=== PATIENT | male | born 1950 | race Caucasian/White ===

== ENCOUNTER 2017-09-05 15:08 | Outpatient (CLI) | payer MEDICARE, BC ==
--- NOTE | 2017-09-05 18:17 | MRI ---
CERVICAL SPINE MRI WITHOUT CONTRAST: Date: 09/05/17 HISTORY: Cervical radiculopathy. COMPARISON: None. TECHNIQUE: A cervical spine MRI is performed without contrast administration. Multisequential, multiplanar imag ing is performed. FINDINGS: There is appropriate T1 marrow signal intensity of the cervical vertebra. Cervical spine vertebral b анна height is maintained. No fracture. No significant STIR hyperintensity to suggest vertebral body edema or ligamentous injury. Visualized brain parenchyma, cervicomedullary junction, cervical cord, and the upper thoracic cord h ave a normal size and signal intensity. C2-C3: No significant disc osteophyte complex. No significant central canal stenosis. Neural foramina are p atent. C3-C4: No significant disc osteophyte complex. No significant central canal stenosis. Degenerative changes in bilateral uncovertebral joints and bilateral facet hypertrophy result in moderate bilateral trey inal narrowing. C4-C5: Broad based disc osteophyte complex abuts the thecal sac. No high grade central canal stenosis. Dege nerative changes in bilateral uncovertebral joints and facet hypertrophy result in moderate bilatera l foraminal narrowing. C5-C6: Broad based disc osteophyte complex abuts the thecal sac. Mild central canal stenosis. Neural forami na appear to be patent. C6-C7: No high grade central canal stenosis. Neural foramina are patent. C7-T1: No high grade central canal stenosis. Neural foramina are patent. IMPRESSION: Limited evaluation due to motion degradation and multiple sequences. Degenerative changes of the cer vical spine as detailed above. POS: [facility]
== END 2017-09-05 15:09 | disposition home or self-care (01) ==
LOC: TBSIIMAG 15:08
PROVIDERS: ATTEND Neurological Surgery
DX: M47.22 Other spondylosis with radiculopathy, cervical region (principal)
CPT/HCPCS: 72141

== ENCOUNTER 2017-11-04 05:41 | Day surgery (SDC) | payer MEDICARE, BC ==
--- NOTE | 2017-10-30 09:30 | HP ---
HISTORY OF PRESENT ILLNESS: Mr. Shultz is back in our office after he continues to have difficulty co ntrolling his right hand and has burning and numbness in the right hand if he uses the arm too much. Sensory symptoms are in the right ulnar nerve distribution of the forearm and hand. They involve th e palm and dorsum of the 4th and 5th digits. The right hand feels weak and he cannot drum in his ban d as he wishes to. He recently had a NCS with Dr. Gifty Hi that showed ulnar neuropathy at the elb ow of the right upper extremity. He also had an MRI of his right upper extremity at [facility]. Mr. Shultz had a right ulnar transposition on 11/27/2016 at [facility]. The pain and numbnes s never fully has been relieved. PAST MEDICAL HISTORY: Hypertension, high cholesterol, diabetes mellitus. ALLERGIES: BAND-AIDS. REVIEW OF SYSTEMS: Ten-point review of systems completed is otherwise negative unless stated in the above HPI. PHYSICAL EXAMINATION: HEENT: Normocephalic, atraumatic. Hearing intact. Moist mucous membranes. NECK: Normal range of motion. Trachea is midline. RESPIRATORY: The patient has bilateral symmetric chest rise. Appears to have no shortness of breath . CARDIOVASCULAR: The patient has regular rate and rhythm, normal S1, S2 heart sounds. No distal cyan osis or clubbing noted. NEUROLOGIC: Cranial nerves II-XII are grossly intact. Speech is fluent. He answers my questions ap propriately. Gait and station are normal. Motor exam of the right hand has intrinsic weakness in th e intrinsic muscles, 3/5. Sensory exam; positive Tinel's along the right ulnar nerve. Most serious are the areas of the transposition anterior to the elbow joint. MRI of the cervical spine at [facility] shows no compression of C8 or T1. EMG and NCV shows median nerves improved from 2015, left ulnar nerve stable, right ulnar nerve worse. 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 PLAN: 1. Sensory loss in the hand is palmar and dorsum, not a Guyon's canal issue. 2. We plan to re-explore the ulnar nerve transposition and free the nerve again. Further proximal a nd distal if needed and see if the nerve is better behind the epicondyle. Consent was given. We discussed the indications, risks, benefits, alternatives, and expected results from surgery. The risks discussed included, but were not limited to bleeding, infection, nerve dave ge, hand weakness, complex regional pain syndrome, reflex sympathetic dystrophy, cardiopulmonary comp lications of sedation including . He understands the risk and is willing to proceed with the sanchez rgery.
[2017-11-01 15:22] VITALS: BMI 29.1
[2017-11-04] MEDS ORDERED: Sodium Chloride 0.9% 10 ML ONE (06:17)
[2017-11-04] MEDS ORDERED: CEFAZOLIN/Water 2 GM/20 ML SYRINGE ONE (06:18)
[2017-11-04 06:28] LABS: #Basophils 0.1 thou/uL (0.0-0.2); #Eosinphils 0.2 thou/uL (0.0-0.7); #Lymphocytes 2.1 thou/uL (1.20-3.40); #Monocytes 0.8 thou/uL (0.11-0.59); #Neutrophils 5.4 thou/uL (1.40-6.50); %Eosinophils 2.2 % (0.0-10.0); %Lymphocytes 24.3 % (21.0-51.0); Hematocrit 42.8 % (42.0-52.0); Mean Platelet Volume 9.1 fL (7.4-10.4); Red Blood Cell (RBC) Count 4.71 mill/uL (4.70-6.10); White Blood Cell (WBC) Count 8.5 thou/uL (4.8-10.8)
[2017-11-04] MEDS ORDERED: Bupivacaine/Epinephrine 0.25% 30 ML VIAL ONE (06:32)
[2017-11-04 06:37] LABS: PTT 27.6 SEC (22.9-36.1); Prothrombin Time 12.6 SEC (12.0-14.7)
[2017-11-04] MEDS ORDERED: Fentanyl 100 MCG/2 ML VIAL ONE (06:41)
[2017-11-04 06:42] LABS: Anion Gap 11 mmol/L (10-20); BUN (Urea Nitrogen) 16 mg/dL (8.4-25.7); Calc. Creatinine Clearance 90 mL/min (70-130); Calcium 8.7 mg/dL (7.8-10.44); Carbon Dioxide 25 mmol/L (23-31); Chloride 103 mmol/L (98-107); Estimated GFR-MDRD 86
[2017-11-04] MEDS ORDERED: Insulin Regular 300 UNITS/3 ML VIAL ONE (06:42)
--- NOTE | 2017-11-04 11:17 | OP ---
DATE OF PROCEDURE: 11/04/2017 SURGEON: Ajit Hadley M.D. SURVEY COMPILER: Louis Gaston PA-C. PREOPERATIVE INDICATION: Prevent further neurological deterioration. PREOPERATIVE DIAGNOSES: Prior ulnar transposition, recurrent ulnar neuropathy with worsening neurolo gical deficit. POSTOPERATIVE DIAGNOSES: Prior ulnar transposition, recurrent ulnar neuropathy with worsening neurol ogical deficit. OPERATIVE PROCEDURE: Reopening of the incision at the right elbow, external neurolysis ulnar nerve, submuscular transposition of the ulnar nerve. PREOPERATIVE MEDICATION: Ancef 2 grams IV. DRAIN NUMBER: Zero. DRAIN TYPE: None. OPERATIVE DICTATION: The patient was brought to the operating room. General LMA anesthesia was mary mariluz. The patient's arm was extended on an arm board attachment for the operating table. The entire arm was sterilely prepped and draped. We planned to reopen the previous incision and extended proxim ally and distally. Under our planned incision, we infused local anesthetic. We opened our incision with a 15 blade knife and controlled bleeding with bipolar cautery. We used sharp dissection with th e needle point cautery dissecting hemostats and bipolar cautery until we had freed up the scar tissue and identified the ulnar nerve in the subcutaneous compartment over the ventral aspect of the elbow. We dissected circumferentially around the nerve and continued our dissection proximally and distall y. There were 2 areas of severe fibrosis of the nerve. The first was at the intermuscular septum of the arm and the second was where the nerve dove into the flexure carpi ulnaris distally. We used ca reful external neurolysis to free the ulnar nerve from these 2 sites of entrapment. We continued our dissection of the ulnar nerve proximally for another 5 cm that we had done before and distally we sp lit the heads of the flexor carpi ulnaris. We dissected circumferentially around multiple branches o f the nerve until there was a significant amount of loose nerve. We tried to reposition the nerve in the cubital tunnel, resection of the elbow made it transpose itself to the ventral surface of the el bow and we thought leaving it in its original position was not going to offer significant improvement . We had already done 1 subcutaneous transposition, so we elected to do submuscular transposition at this time. We took a larger wedge of the intermuscular septum of the arm to allow smoother transpos ition. We used the lengthening Z incision of the flexor pronator tendinous complex at the medial epi condyle and dissected all the way down beneath the muscle. In the submuscular position, flexion and extension of the elbow does not produce any stretch or impingement of the ulnar nerve whatsoever. We irrigated copiously with bacitracin irrigation. We reattached the flexor pronator tendon to the rem nant on the medial epicondyle with some lengthening due to our Z incision. This was done with horizo ntal mattress sutures. The last check of the nerve with a Hortense 4 dissector was placed in the sub muscular compartment along with the nerve and we flexed and extended and still found no significant c ompression of the nerve. We irrigated copiously with bacitracin irrigation once again. We closed th e incision in anatomic layers and we applied a sterile dressing. The patient was placed in a wrist s plint to avoid significant wrist flexion and pronation and we had an elbow sling for comfort. The pa tient was taken to the recovery room in good neurological condition.
[2017-11-04] MEDS ORDERED: Labetalol HCl 100 MG/20 ML VIAL ONE (17:19)
[2017-11-04] MEDS ORDERED: Glycopyrrolate 0.2 MG/ML 5 ML SYRINGE ONE (17:19)
[2017-11-04] MEDS ORDERED: Propofol 200 MG/20 ML VIAL ONE (17:19)
[2017-11-04] MEDS ORDERED: Lidocaine 1% PF 5 ML VIAL ONE (17:19)
[2017-11-04] MEDS ORDERED: ePHEDrine/0.9% NaCl/PF SYRINGE 50 mg/10 ml ONE (17:19)
[2017-11-04] MEDS ORDERED: Calcium Chloride 1 GM/10 ML Abboject SYRINGE ONE (17:19)
[2017-11-04] MEDS ORDERED: Ondansetron HCl/PF 4 MG/2 ML Vial ONE (17:19)
[2017-11-04] MEDS ORDERED: Metoclopramide HCl 10 MG/2 ML VIAL ONE (17:19)
[2017-11-04] MEDS ORDERED: Ketorolac Tromethamine 30 MG/ML VIAL ONE (17:19)
== END 2017-11-04 13:14 | disposition home or self-care (01) ==
LOC: SDC 05:41
PROVIDERS: ATTEND Neurological Surgery
PROC: 01N40ZZ Release Ulnar Nerve, Open Approach (ICD-10-PCS; principal; 2017-11-04)
DX: G56.21 Lesion of ulnar nerve, right upper limb (principal); I10 Essential (primary) hypertension; E78.00 Pure hypercholesterolemia, unspecified; E11.9 Type 2 diabetes mellitus without complications; Z98.890 Other specified postprocedural states; Z90.49 Acquired absence of other specified parts of digestive tract; Z96.651 Presence of right artificial knee joint; Z88.8 Allergy status to other drugs, medicaments and biological substances; Z79.4 Long term (current) use of insulin; Z79.899 Other long term (current) drug therapy
CPT/HCPCS: 36415; 36416; 80048; 85025; 85610; 85730; A4216; J0131; J1170; J1815; J1885; J2001; J2405; J2704; J2765; J3010; J3490

== ENCOUNTER 2018-05-05 13:11 | Outpatient (CLI) | payer MEDICARE, BC ==
[2018-05-05] MEDS ORDERED: Gadobenate Dimeglumine 529 MG/1 ML (20ML VIAL) ONE (15:00)
--- NOTE | 2018-05-05 16:42 | MRI ---
MRI RIGHT BRACHIAL PLEXUS WITH AND WITHOUT CONTRAST: 05/05/2018 HISTORY: Right arm weakness for several years, progressively worsening. The patient has a history of right shoulder repair and right wrist/hand carpal tunnel repair. COMPARISON: None. TECHNIQUE: Multiplanar, multisequence MR imaging of the right brachial plexus obtained with and without contrast . FINDINGS: Coronal STIR imaging, limited by artifact and motion, demonstrates no focal area of edema in the yajaira on of the brachial plexus on either side. Degenerative changes are seen involving the right acromioc lavicular joint with joint space narrowing, osteophyte formation, and small volume fluid signal inten sity within the right AC interspace. Sagittal T1 weighted imaging through the cervical spine is limited by motion artifact and demonstrate s multilevel right-sided facet hypertrophy. There is also degenerative change at the atlantoaxial in terspace. No mass lesion or adenopathy is seen along the course of the brachial plexus on the right. Post contrast imaging demonstrates no mass lesion or abnormal enhancement along the course of the bra chial plexus on the right. The cervical spine is not fully assessed on this examination, with regard to central canal and/or madhavi ral foraminal stenosis. Imaged spinal cord demonstrates normal signal intensity. IMPRESSION: No mass lesion, edema, or abnormal enhancement is appreciated along the course of the brachial plexus on the right. Please note that this study is significantly limited on the basis of persistent patie nt motion artifact. POS: [facility]
== END 2018-05-05 13:12 | disposition home or self-care (01) ==
LOC: TBSIIMAG 13:11
PROVIDERS: ATTEND Neurological Surgery
DX: M62.541 Muscle wasting and atrophy, not elsewhere classified, right hand (principal); M62.89 Other specified disorders of muscle
CPT/HCPCS: 71552; 82565; A9579

== ENCOUNTER 2018-09-02 09:27 | Emergency (ER) | payer MEDICARE, BC, OTHER ==
[2018-09-02] MEDS ORDERED: Ibuprofen 200 MG TAB ONE (10:50)
[2018-09-02] MEDS ORDERED: Acetaminophen 325 MG TAB ONE (10:50)
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
== END 2018-09-02 12:40 | disposition home or self-care (01) ==
LOC: ERS 09:27
DX: M54.5 Low back pain (principal); E11.9 Type 2 diabetes mellitus without complications; I10 Essential (primary) hypertension; V89.2XXA Person injured in unspecified motor-vehicle accident, traffic, initial encounter
CPT/HCPCS: 70450; 72072; 72100

== ENCOUNTER 2018-09-17 10:41 | Day surgery (SDC) | payer MEDICARE, BC ==
[2018-09-17 11:54] VITALS: BMI 29.1
[2018-09-17] MEDS ORDERED: Prevnar 13-Val Conj/PF 0.5 ML SYRINGE IM ONE (12:15)
[2018-09-17 12:44] VITALS: BP 171/84; TEMP 97
--- NOTE | 2018-09-17 14:32 | RAD ---
LUMBAR MYELOGRAM: History: Spinal stenosis. Comparison: None. Exposure: 0.4 minutes, 72.1 mGy*cm^2 FINDINGS: Initial two view senior policy associate lumbar spine radiograph demonstrates bilateral transpedicular screws at L4, L5 , and S1. Possible perihardware lucency involving the right S1 screw. Disc prosthesis at L5-S1. Osteo phyte formation at L4-5, L5-S1 as well as L3-4. Vertebral body height is maintained. No fracture. IMPRESSION: Successful lumbar puncture. A total of 10 cc of Isovue M200 contrast was administered intrathecally. No immediate or post procedure complication. Technique: Consent obtained to perform a lumbar puncture for lumbar myelogram. The patient's back was evaluated. The L2-3 level was deemed appropriate. Skin was prepped and draped in sterile fashion. 1% Lidocaine, buffered with sodium bicarbonate, used for local anesthesia. Under fluoroscopic guidance, a 22 gauge spinal needle was advanced to the CSF space. Via short tubing catheter, a total of 10 cc of Isovue M 200 contrast was administered intrathecally. The patient tolerated the procedure well. No immediate o r post procedure complication. IMPRESSION: Successful lumbar puncture for lumbar myelogram. Refer to the separate CT Myelogram report for furthe r details. POS: [facility]
--- NOTE | 2018-09-17 15:35 | CT ---
CT MYELOGRAM OF LUMBAR SPINE: Date: 09/17/18 HISTORY: Spinal stenosis. COMPARISON: 07/06/15. TECHNIQUE: Post myelogram lumbar spine CT is performed in the axial plane. Reformatted images are submitted for interpretation. FINDINGS: There is interval development of left psoas muscle atrophy. Atherosclerosis of a nonaneurysmal aorta. Visualized solid organs are grossly unremarkable. No retroperitoneal mass, lymphadenopathy, or hematoma. There are nonspecific, nonenlarged periaortic and aortocaval lymph nodes. Lumbar spine vertebral body height is maintained. No fracture. The right S1 transpedicular screw has subtle perihardware lucency. The left transpedicular screw at S1 extends beyond the anterior margin. Disc prosthesis at the L5-S1 level is noted. Lumbar spine vertebral body height is maintained. There is no fracture. 3.0 mm of retrolisthesis of L4 upon L5. T12-L1: No significant central canal stenosis. Patent neural foramina bilaterally. L1-L2: No significant central canal stenosis. Patent bilateral neural foramina. L2-L3: Generalized disc bulge without any significant central canal stenosis. Neural foramina are pa tent bilaterally. L3-L4: Broad based disc bulge, ligamentum flavum thickening, and facet hypertrophy result in mild ce ntral canal stenosis. Mild right and mild to moderate left foraminal narrowing. L4-L5: There is significant loss of disc space height. Posterior laminectomy defect is identified. N o high grade central canal stenosis. Moderate right and moderate to severe left foraminal narrowing. L5-S1: Disc prosthesis. There is posterior decompression change. Bone graft material is identified. No high grade central canal stenosis. Right neural foramen is patent. Left neural foramen is mildly n arrowing. Note, there is a right facetectomy. There is some impingement and encroachment upon the lef t subarticular zone at L5-S1 secondary to an osteophyte ridge. This osteophyte ridge abuts but does n ot significantly obscure the traversing left S1 nerve root. IMPRESSION: 1. Lumbar fusion as above. There is subtle lucency involving the right S1 transpedicular screw. 2. No high grade central canal stenosis. 3. Varying degrees of foraminal stenosis as detailed above. 4. Osteophyte ridge along the left subarticular zone at L5-S1 that abuts but does not obscure the tr aversing left S1 nerve root. POS: [facility]
[2018-09-17] MEDS ORDERED: Iopamidol-M 200 41% 20 ML VIAL ONE (16:12)
== END 2018-09-17 14:20 | disposition home or self-care (01) ==
LOC: RAD 10:41
PROVIDERS: ATTEND Neurological Surgery
PROC: B01B1ZZ Fluoroscopy of Spinal Cord using Low Osmolar Contrast (ICD-10-PCS; principal; 2018-09-17)
DX: M48.061 Spinal stenosis, lumbar region without neurogenic claudication (principal); M25.78 Osteophyte, vertebrae; M51.26 Other intervertebral disc displacement, lumbar region; I70.0 Atherosclerosis of aorta; I10 Essential (primary) hypertension; E78.00 Pure hypercholesterolemia, unspecified; E11.9 Type 2 diabetes mellitus without complications; Z79.4 Long term (current) use of insulin; Z79.899 Other long term (current) drug therapy; Z91.048 Other nonmedicinal substance allergy status; Z98.1 Arthrodesis status
CPT/HCPCS: 62304; 72132

== ENCOUNTER 2019-05-20 09:48 | Outpatient (CLI) | payer MEDICARE, BC ==
--- NOTE | 2019-05-20 11:19 | MRI ---
MRI RIGHT SHOULDER WITHOUT IV CONTRAST: HISTORY: Rupture of right subscapularis tendon, right shoulder pain, and limited range of motion for many year s, getting worse. Prior biceps tendon surgery. FINDINGS: Multiplanar, multisequence MR examination of the right shoulder is performed. There is very severe m otion artifact, which considerably lowers the sensitivity of this study. Severe AC joint arthrosis c hanges are noted, with some subchondral cystic changes and hypertrophic osteophytosis, with some flui d and fat stranding in the subacromial bursa. There is some fluid density within the anterior deltoi d muscle, evidence for muscle strain. Evidence for biceps tenodesis. There is extensive abnormal si gnal associated with the subscapularis tendon and myotendinous region, evidence for a full-thickness retracted tear, particularly of the superior and mid fibers of the subscapularis tendon, with some of the most caudal fibers still appearing to be intact. 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 There is probably some as sociated glenoid hypoplasia. Abnormal signal and blunting of the superior labrum. Irregular, partia l-thickness, undersurface tear of the conjoined tendon region, but without a complete full-thickness retracted tear. IMPRESSION: 1. Evidence for a full-thickness retracted tear of the supraspinatus tendon, particularly the superi or and mid fibers. 2. Status post biceps tenodesis. 3. 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 4. Irregular blunted superior labrum. 5. No intact biceps tendon intra-articularly. 6. Very severe acromioclavicular joint arthrosis with some downsloping of the lateral acromion. 7. Minimal fluid density within the anterior deltoid muscle, evidence for associated strain. POS: [facility]
== END 2019-05-20 09:49 | disposition home or self-care (01) ==
LOC: BICMRI 09:48
PROVIDERS: ATTEND Orthopaedic Surgery
DX: S46.811A Strain of other muscles, fascia and tendons at shoulder and upper arm level, right arm, initial encounter (principal); M75.121 Complete rotator cuff tear or rupture of right shoulder, not specified as traumatic; M19.011 Primary osteoarthritis, right shoulder; Z98.890 Other specified postprocedural states

== ENCOUNTER 2019-05-29 11:28 | Outpatient (CLI) | payer MEDICARE, BC ==
[2019-05-29 12:37] LABS: #Basophils 0.1 thou/uL (0.0-0.2); #Eosinphils 0.1 thou/uL (0.0-0.7); #Lymphocytes 1.7 thou/uL (1.20-3.40); #Monocytes 0.7 thou/uL (0.11-0.59); #Neutrophils 4.1 thou/uL (1.40-6.50); %Basophils 1.1 % (0.0-1.0); %Eosinophils 2.1 % (0.0-10.0); %Lymphocytes 25.5 % (21.0-51.0); %Neutrophils 61.2 % (42.0-75.0); Hemoglobin 14.5 g/dL (14.0-18.0); Mean Corpuscular HGB CONC 34.3 g/dL (32.0-36.0); Mean Corpuscular Hemoglobin 32.5 pg (27.0-31.0); Mean Corpuscular Volume 94.8 fL (78.0-98.0); Mean Platelet Volume 9.3 fL (7.4-10.4); Platelet Count 154 thou/uL (130-400); Red Blood Cell (RBC) Count 4.46 mill/uL (4.70-6.10); White Blood Cell (WBC) Count 6.6 thou/uL (4.8-10.8)
[2019-05-29 13:01] LABS: Anion Gap 12 mmol/L (10-20); BUN (Urea Nitrogen) 14 mg/dL (8.4-25.7); Calc. Creatinine Clearance 0 mL/min (70-130); Calcium 9.4 mg/dL (7.8-10.44); Carbon Dioxide 23 mmol/L (23-31); Chloride 105 mmol/L (98-107); Estimated GFR-MDRD 85; Glucose 214 mg/dL (80-115); Potassium 4.4 mmol/L (3.5-5.1); Sodium 136 mmol/L (136-145)
== END 2019-05-29 11:29 | disposition home or self-care (01) ==
LOC: LABBT 11:28
PROVIDERS: ATTEND Orthopaedic Surgery
DX: Z01.818 Encounter for other preprocedural examination (principal); S46.811A Strain of other muscles, fascia and tendons at shoulder and upper arm level, right arm, initial encounter; M75.101 Unspecified rotator cuff tear or rupture of right shoulder, not specified as traumatic
CPT/HCPCS: 80048; 85025; 93005; 93010

== ENCOUNTER 2019-06-05 05:49 | Day surgery (SDC) | payer MEDICARE, BC ==
[2019-05-29 11:57] VITALS: BMI 30.2
[2019-06-05] MEDS ORDERED: Midazolam HCl 2 mg/2 ml Vial ONE (06:08)
[2019-06-05] MEDS ORDERED: Fentanyl 100 MCG/2 ML VIAL ONE (06:08)
[2019-06-05] MEDS ORDERED: Promethazine HCl 25 MG/ML VIAL IM PRN (06:28)
[2019-06-05] MEDS ORDERED: HYDROcodone/Acetaminophen 10/325 mg Tablet PO PRN ×2 (06:28)
[2019-06-05] MEDS ORDERED: Ropivacaine 0.2% 550 ML 550 ML NERVE BLCK SCH (06:28)
[2019-06-05] MEDS ORDERED: Zolpidem Tartrate 5 MG TAB PO PRN (06:28)
[2019-06-05] MEDS ORDERED: Ondansetron PF 4 MG/2 ML Vial IVP PRN (06:28)
[2019-06-05] MEDS ORDERED: Fentanyl 100 MCG/2 ML VIAL IV PRN (06:28)
[2019-06-05] MEDS ORDERED: traMADol HCl 50 MG TAB PO PRN ×2 (06:28)
[2019-06-05] MEDS ORDERED: Dextrose 50% Abboject 50 ML SYRINGE ONE (06:45)
--- NOTE | 2019-06-05 09:41 | OP ---
DATE OF PROCEDURE: 06/05/2019 PREOPERATIVE DIAGNOSIS: Rotator cuff tear, right shoulder. POSTOPERATIVE DIAGNOSIS: Rotator cuff tear, right shoulder. PROCEDURE PERFORMED: Arthroscopic subacromial decompression, arthroscopic rotator cuff repair. ANESTHESIA: General. ESTIMATED BLOOD LOSS: Minimal. SPECIMEN: None. DRAINS: None. COMPLICATIONS: None. DESCRIPTION OF PROCEDURE: The patient was taken to the operating room, where general anesthesia was induced. He was placed in left lateral decubitus position. Right arm was placed in a 15-pound traction, prepped and draped in usual sterile fashion. Scope was placed in glenohumeral joint. He did have some findings of arthritis in the glenohumeral joint, not quite bone on bone, but certainly significant arthritis. His biceps tendon was chronically avulsed. The rotator cuff tear was easily identified in the supraspinatus. The scope was placed in the subacromial bursa. Subacromial decompression was performed. CA ligament was taken down. Bursectomy was performed. I freshened up the greater tuberosity with a shaver and a bur. I placed a corkscrew suture anchor through the bone, passed sutures up through the tendon and tied it down to bone with good watertight repair and then reinforced this with a double row SwiveLock technique. Shoulder was then drained and ports were closed with nylon suture. Sterile dressings applied. Job ID: [id number]
[2019-06-05] MEDS ORDERED: Ketorolac Tromethamine 30 MG/ML VIAL IVP SCH (12:00)
[2019-06-05] MEDS ORDERED: Ropivacaine 0.5% HCl/PF (150 MG/30 ML VIAL) ONE (14:52)
[2019-06-05] MEDS ORDERED: Ropivacaine 0.2% HCl/PF (40 MG/20 ML VIAL) ONE (14:52)
[2019-06-05] MEDS ORDERED: Glycopyrrolate 0.2 MG/ML 5 ML SYRINGE ONE (15:15)
[2019-06-05] MEDS ORDERED: Ondansetron PF 4 MG/2 ML Vial ONE (15:15)
[2019-06-05] MEDS ORDERED: ePHEDrine 50 MG/ML VIAL ONE (15:15)
[2019-06-05] MEDS ORDERED: Lidocaine 1% PF 5 ML VIAL ONE (15:15)
[2019-06-05] MEDS ORDERED: PROPOFOL 200 MG/20 ML VIAL ONE (15:15)
[2019-06-05] MEDS ORDERED: Rocuronium Bromide 10 MG/ML (10ML VIAL) ONE (15:15)
[2019-06-05] MEDS ORDERED: PHENYLEPHRINE-NS 100 MCG/ML 10 ML SYRINGE ONE (15:15)
== END 2019-06-05 13:10 | disposition home or self-care (01) ==
LOC: SDC 05:49
PROVIDERS: ATTEND Orthopaedic Surgery
PROC: 0LQ14ZZ Repair Right Shoulder Tendon, Percutaneous Endoscopic Approach (ICD-10-PCS; principal; 2019-06-05)
DX: M75.101 Unspecified rotator cuff tear or rupture of right shoulder, not specified as traumatic (principal); M19.011 Primary osteoarthritis, right shoulder; Z79.4 Long term (current) use of insulin; Z79.899 Other long term (current) drug therapy
CPT/HCPCS: 29827; 82962; 97139; A4306; C1713 ×2; 36416; J0690; J2250; J2795; J3010

== ENCOUNTER 2019-07-11 17:05 | Emergency (ER) | payer MEDICARE, BC | END 2019-07-11 18:36 | disposition home or self-care (01) | LOC: ERS 17:05 | DX: E11.649 Type 2 diabetes mellitus with hypoglycemia without coma (principal); E78.5 Hyperlipidemia, unspecified; I10 Essential (primary) hypertension; F32.9 Major depressive disorder, single episode, unspecified | CPT/HCPCS: 36416; 99283 ==

== ENCOUNTER 2020-01-08 08:33 | Outpatient (CLI) | payer MEDICARE, BC ==
--- NOTE | 2020-01-08 10:51 | MRI ---
MRI CERVICAL SPINE WITHOUT CONTRAST: HISTORY: Right shoulder pain, radiating down the right hand.. COMPARISON: 09/05/2017. FINDINGS: Appropriate T1 marrow signal intensity of the cervical vertebrae. Cervical spine vertebral body heig ht is maintained. No fracture. No significant STIR hyperintensity to suggest vertebral body edema or ligamentous injury. Visualized brain parenchyma, cervicomedullary junction, cervical cord and the upper thoracic cord hav e a normal size and signal intensity Sagittal images demonstrate a right paracentral disc herniation at T3-T4 with mild deformity of the t horacic cord. No obvious cord signal abnormality in the sagittal images. C2-C3: No significant central canal stenosis or significant neural foraminal narrowing. C3-C4: Broad-based disc bulge abuts the thecal sac. Subarachnoid space is still maintained. Mild cent ral canal stenosis. Moderate bilateral foraminal narrowing due to uncovertebral and facet hypertrophy. C4-C5: Broad-based disc bulge with a right paracentral component. There is mild ligament flavum thick ening. Mild to moderate central canal stenosis, without cord hyperintensity. Moderate bilateral neural foraminal narrowing. C5-C6: Disc desiccation without significant loss of disc space height. There appears be a central dis c herniation. Subarachnoid space appears be maintained. No significant central canal stenosis. Minimal right foraminal narrowing due to uncovertebral hypertrophy. Left neural foramen appears to be patent. C6-C7: No significant central canal stenosis or significant neural foraminal narrowing. C7-T1: No significant central canal stenosis or significant neural foraminal. IMPRESSION: Limited evaluation due to motion degradation on multiple sequences. Degenerative changes of cervical spine as above. Transcribed Date/Time: 01/08/2020 12:20 PM
== END 2020-01-08 08:34 | disposition home or self-care (01) ==
LOC: TBSIIMAG 08:33
PROVIDERS: ATTEND Neurological Surgery
DX: M47.812 Spondylosis without myelopathy or radiculopathy, cervical region (principal)
CPT/HCPCS: 72141

== ENCOUNTER 2020-07-28 08:46 | Outpatient (CLI) | payer MEDICARE, BC ==
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
--- NOTE | 2020-07-28 11:43 | MRI ---
MRI OF THE RIGHT WRIST: DATE: 07/28/2020. PROVIDED CLINICAL HISTORY: Right wrist pain. FINDINGS: There is enlargement and increased signal intensity on fluid sensitive sequences involving the extens or digiti minimi tendon at the level of the carpus with greater than physiologic tenosynovial fluid i n this region. The dorsal extensor and volar flexor tendons demonstrate an otherwise unremarkable MR I appearance. TFC complex and intrinsic wrist ligaments are suboptimally evaluated in the absence of joint distenti on. There is increased signal intensity on fluid sensitive sequences and irregularity involving the dorsal radioulnar ligament near its ulnar attachment. The scapholunate and lunotriquetral ligaments appear grossly intact. The amount of fluid within the radiocarpal, mid carpal, and distal radial uln ar joints is physiologic. There is muscular volume loss involving the flexor digiti minimi and abductor digiti minimi with asso ciated increased signal intensity on fluid sensitive sequences. There is fatty atrophy of the oppone ns digiti minimi. Muscular volume loss and signal alteration partially visualized involving the ul jabari-sided interosseous and lumbrical muscles. There is likely physiologic alteration involving pronat or quadratus. The courses of the regional major neurovascular structures appear unremarkable, specifically the yajaira on of Guyon's canal. There is positive ulnar variance without signal changes within the distal ulna or adjacent ulnar carp us. Regional marrow and muscular signal appear otherwise unremarkable. IMPRESSION: 1. Subacute-chronic muscular denervation changes in the distribution of the ulnar nerve, without siddhartha dence for abnormality involving the visualized course of the ulnar nerve. 2. Positive ulnar variance and probable degenerative tearing involving the dorsal radioulnar ligamen t. 3. Extensor digiti minimi tendinosis and tenosynovitis. POS: [facility]
--- NOTE | 2020-07-28 11:49 | RAD ---
RIGHT ELBOW 2 VIEWS: HISTORY: Lateral epicondylitis. FINDINGS: Two views of the left elbow demonstrate some osteoarthrosis change. There appear to be some enthesop hytic changes involving the region of the lateral epicondyle as well as some small foci as ossificati on in the region of the lateral collateral ligament. There is evidence for joint effusion. IMPRESSION: Osteoarthrosis and degenerative changes with some enthesophytic changes noted at the level of the lat eral epicondyle and some minimal ossification within the region of the lateral collateral ligament. Evidence for minimal joint effusion. No fracture or dislocation. POS: OFF
== END 2020-07-28 08:47 | disposition home or self-care (01) ==
LOC: BICMRI 08:46
PROVIDERS: ATTEND Orthopaedic Surgery Hand Surgery
DX: M77.11 Lateral epicondylitis, right elbow (principal); M25.531 Pain in right wrist; M19.021 Primary osteoarthritis, right elbow; M25.421 Effusion, right elbow; M65.9 Synovitis and tenosynovitis, unspecified; S53.401A Unspecified sprain of right elbow, initial encounter; Z98.890 Other specified postprocedural states

== ENCOUNTER 2021-07-07 13:26 | Outpatient (CLI) | payer MEDICARE, BC ==
[2021-07-07 14:31] LABS: #Basophils 0.1 10x3/uL (0.0-0.2); #Eosinphils 0.2 10x3/uL (0.0-0.5); #Monocytes 0.8 10x3/uL (0.0-1.1); #Neutrophils 6.3 10x3/uL (1.5-8.4); %Basophils 1.2 % (0.0-2.0); %Eosinophils 1.7 % (0.0-6.0); %Lymphocytes 17.7 % (18.0-47.0); %Monocytes 9.3 % (0.0-10.0); %Neutrophils 69.8 % (40.0-75.0); Anion Gap 14 mmol/L (10-20); BUN (Urea Nitrogen) 18 mg/dL (8.4-25.7); Calc. Creatinine Clearance 0 mL/min (70-130); Calcium 9.7 mg/dL (7.8-10.44); Carbon Dioxide 24 mmol/L (23-31); Chloride 105 mmol/L (98-107); Glucose 279 mg/dL (83-110); Hemoglobin 13.9 g/dL (13.5-17.5); Mean Corpuscular Hemoglobin 30.7 pg (27.0-33.0); Mean Corpuscular Volume 90.3 fl (81.2-95.1); Platelet Count 161 10x3/uL (150-450); Potassium 4.2 mmol/L (3.5-5.1); RBC Distribution Width 12.6 % (11.5-14.5); Red Blood Cell (RBC) Count 4.53 10x6/uL (4.32-5.72); Sodium 139 mmol/L (136-145)
[2021-07-07 16:19] LABS: Bilirubin Neg (Negative); Blood, Urine 10 (Negative); Clarity Clear (Clear); Glucose, Urine (Dipstick) 100 mg/dL (Negative); Ketone, Urine Negative (Negative); Leukocyte Negative (Negative); Nitrite Negative (Negative); Protein, Urine (Dipstick) 30 mg/dl (Neg-Trace); Specific Gravity, Urine 1.015 (1.002-1.036); Urobilinogen Normal mg/dL (Less than 2)
[2021-07-07 16:43] LABS: Bacteria/HPF None Seen HPF (None Seen); Mucous/LPF 1+ LPF (<2+); RBC/HPF 0-3 HPF (0-3); Squamous Epithelial 0-3 HPF (0-3); WBC/HPF 0-3 HPF (0-3)
[2021-07-08 19:32] LABS: SARS-CoV-2 PCR by NAA Not Detected (NotDetected)
== END 2021-07-07 13:27 | disposition home or self-care (01) ==
LOC: LABBT 13:26
PROVIDERS: ATTEND Orthopaedic Surgery Hand Surgery
DX: Z01.818 Encounter for other preprocedural examination (principal); S63.591A Other specified sprain of right wrist, initial encounter; M65.331 Trigger finger, right middle finger; G56.21 Lesion of ulnar nerve, right upper limb; Z20.822 Contact with and (suspected) exposure to COVID-19
CPT/HCPCS: 80048; 81001; 85025; U0003; U0005

== ENCOUNTER 2021-10-03 07:32 | Outpatient (CLI) | payer MEDICARE, BC | END 2021-10-03 07:33 | disposition home or self-care (01) | LOC: TBSIIMAG 07:32 | PROVIDERS: ATTEND Orthopaedic Surgery Hand Surgery | DX: M25.531 Pain in right wrist (principal); M65.831 Other synovitis and tenosynovitis, right forearm; R60.0 Localized edema; S63.591A Other specified sprain of right wrist, initial encounter ==

== ENCOUNTER 2022-07-17 07:31 | Outpatient (CLI) | payer MEDICARE, BC | END 2022-07-17 07:32 | disposition home or self-care (01) | LOC: TBSIIMAG 07:31 → MRI 07:32 | PROVIDERS: ATTEND Orthopaedic Surgery | DX: S46.012A Strain of muscle(s) and tendon(s) of the rotator cuff of left shoulder, initial encounter (principal) ==

== ENCOUNTER 2023-04-17 09:59 | Outpatient (CLI) | payer MEDICARE, BC ==
[2023-04-17 11:50] LABS: #Basophils 0.1 10x3/uL (0.0-0.2); #Eosinphils 0.2 10x3/uL (0.0-0.5); #Monocytes 0.8 10x3/uL (0.0-1.1); #Neutrophils 4.5 10x3/uL (1.5-8.4); %Eosinophils 2.1 % (0.0-6.0); %Lymphocytes 21.8 % (18.0-47.0); %Monocytes 11.5 % (0.0-10.0); Hemoglobin 12.8 g/dL (13.5-17.5); Mean Corpuscular HGB CONC 33.4 g/dL (32.0-36.0); Mean Corpuscular Hemoglobin 30.6 pg (27.0-33.0); Mean Corpuscular Volume 91.6 fl (81.2-95.1); Mean Platelet Volume 12.8 fl (7.4-10.4); Platelet Count 153 10x3/uL (150-450); RBC Distribution Width 12.9 % (11.5-14.5); Red Blood Cell (RBC) Count 4.18 10x6/uL (4.32-5.72); White Blood Cell (WBC) Count 7.1 10x3/uL (3.5-10.5)
== END 2023-04-17 10:00 | disposition home or self-care (01) ==
LOC: LABBT 09:59
PROVIDERS: ATTEND Orthopaedic Surgery Hand Surgery
DX: Z01.818 Encounter for other preprocedural examination (principal); G56.02 Carpal tunnel syndrome, left upper limb
CPT/HCPCS: 85025; 93005; 93010

== ENCOUNTER 2024-04-28 08:08 | Outpatient (CLI) | payer BC, MEDICARE | END 2024-04-28 08:09 | disposition home or self-care (01) | LOC: BICMRI 08:08 | PROVIDERS: ATTEND Orthopaedic Surgery Hand Surgery | DX: S62.015A Nondisplaced fracture of distal pole of navicular [scaphoid] bone of left wrist, initial encounter for closed fracture (principal); M65.832 Other synovitis and tenosynovitis, left forearm; R93.7 Abnormal findings on diagnostic imaging of other parts of musculoskeletal system; M67.834 Other specified disorders of tendon, left wrist; S63.502A Unspecified sprain of left wrist, initial encounter; M94.8X3 Other specified disorders of cartilage, forearm ==

== ENCOUNTER 2024-05-15 09:27 | Outpatient (CLI) | payer MEDICARE ==
[2024-05-15 11:35] LABS: #Basophils 0.07 10x3/uL (0.0-0.2); #Eosinphils 0.16 10x3/uL (0.0-0.5); #Monocytes 0.68 10x3/uL (0.0-1.1); #Neutrophils 4.44 10x3/uL (1.5-8.4); %Eosinophils 2.4 % (0.0-6.0); %Lymphocytes 20.4 % (18.0-47.0); %Monocytes 10.1 % (0.0-10.0); %Neutrophils 65.7 % (40.0-75.0); Hematocrit 35.6 % (38.8-50.0); Hemoglobin 12.1 g/dL (13.5-17.5); Mean Corpuscular Hemoglobin 31.6 pg (27.0-33.0); Mean Platelet Volume 12.8 fL (7.4-10.4); Platelet Count 139 10x3/uL (150-450); RBC Distribution Width 13.1 % (11.5-14.5); Red Blood Cell (RBC) Count 3.83 10x6/uL (4.32-5.72); White Blood Cell (WBC) Count 6.8 10x3/uL (3.5-10.5)
[2024-05-15 11:49] LABS: Anion Gap 13 mmol/L (10-20); BUN (Urea Nitrogen) 26 mg/dL (8.4-25.7); Calc. Creatinine Clearance 0 mL/min (70-130); Calcium 8.9 mg/dL (7.8-10.44); Carbon Dioxide 20 mmol/L (23-31); Chloride 112 mmol/L (98-107); Estimated GFR 60; Glucose 83 mg/dL (83-110); Potassium 3.9 mmol/L (3.5-5.1); Sodium 141 mmol/L (136-145)
== END 2024-05-15 09:28 | disposition home or self-care (01) ==
LOC: LABBT 09:27
PROVIDERS: ATTEND Orthopaedic Surgery Hand Surgery
DX: Z01.818 Encounter for other preprocedural examination (principal); S63.592A Other specified sprain of left wrist, initial encounter; S63.502A Unspecified sprain of left wrist, initial encounter; M65.322 Trigger finger, left index finger
CPT/HCPCS: 80048; 85025; 93005; 93010

== ENCOUNTER 2024-05-18 11:52 | Inpatient (IN) | payer MEDICARE ==
[2024-05-18] MEDS ORDERED: fentaNYL PF 100 MCG/2 ML SYRINGE ONE ×4 (12:22→18:47)
[2024-05-18] MEDS ORDERED: PROPOFOL 20 ML ONE ×2 (12:23→15:39)
[2024-05-18] MEDS ORDERED: Ondansetron PF 4 MG/2 ML Vial ONE (12:23)
[2024-05-18] MEDS ORDERED: Dexamethasone 4 mg/ml Vial ONE (12:23)
[2024-05-18] MEDS ORDERED: Lidocaine 1% PF 5 ML VIAL ONE (12:23)
[2024-05-18] MEDS ORDERED: Bupivacaine PF 0.5% 30 ML VIAL ONE (13:33)
[2024-05-18] MEDS ORDERED: Bacitracin Zinc Ointment 30 gm TUBE ONE (13:33)
[2024-05-18] MEDS ORDERED: Betamet Acet/Betamet Na Ph 30 MG/5 ML VIAL ONE (13:33)
[2024-05-18] MEDS ORDERED: EPINEPHrine 1 MG/ML VIAL ONE (13:46)
[2024-05-18] MEDS ORDERED: Sodium Chloride 0.9% 100 ML ONE (14:25)
[2024-05-18] MEDS ORDERED: CEFAZOLIN 2 GM VIAL ONE (14:25)
[2024-05-18] MEDS ORDERED: Ropivacaine 0.5% HCl/PF (150 MG/30 ML VIAL) ONE (14:40)
[2024-05-18] MEDS ORDERED: Midazolam HCl 2 mg/2 ml Vial ONE (14:44)
[2024-05-18] MEDS ORDERED: Phenylephrine 40 MG/NS 250 ML 250 ML ONE (14:50)
[2024-05-18] MEDS ORDERED: ePHEDrine Sulfate 50 MG/10 ML VIAL ONE (15:14)
[2024-05-18] MEDS ORDERED: HYDROmorphone 0.5 MG/0.5 ML SYRINGE ONE ×3 (19:11→19:39)
[2024-05-18] MEDS ORDERED: traMADol HCl 50 MG TAB PO PRN (19:12)
[2024-05-18] MEDS ORDERED: Ondansetron PF 4 MG/2 ML Vial IVP PRN (19:12)
[2024-05-18] MEDS ORDERED: Milk Of Magnesia 30 ML UDCUP PO PRN (19:12)
[2024-05-18] MEDS ORDERED: fentaNYL 50 mcg/mL 1 mL Vial SLOW IVP PRN (19:12)
[2024-05-18] MEDS ORDERED: Promethazine HCl 25 MG/ML VIAL IM PRN (19:12)
[2024-05-18] MEDS ORDERED: Bisacodyl 10 MG SUPP PR PRN (19:12)
[2024-05-18] MEDS ORDERED: Communication Order-Pharmacy FS SCH (19:15)
[2024-05-18] MEDS ORDERED: Meperidine HCl/PF 25 MG (1 mL) VIAL IM PRN (19:16)
[2024-05-18] MEDS ORDERED: Acetaminophen 325 MG TAB ONE (19:47)
[2024-05-18] MEDS ORDERED: Ketorolac Tromethamine 30 MG (1 mL) VIAL ONE (19:47)
[2024-05-18] MEDS: HYDROcodone/Acetaminophen 5/325 mg Tablet PO PRN (21:07)
[2024-05-18] MEDS: Atorvastatin Calcium 20 MG TAB PO SCH (21:08)
[2024-05-18] MEDS: Aspirin 81 mg Enteric Coated Tablet PO SCH (21:08)
[2024-05-18] MEDS: Ranolazine ER 500 MG TAB PO SCH (21:09)
[2024-05-18] MEDS: Gabapentin 400 MG CAP PO SCH (21:09)
[2024-05-18] MEDS: TETANUS, DIPHTHERIA TOX,ADULT (TDVAX) 0.5 ML VIAL IM ONE (21:09)
[2024-05-18] MEDS: CEFAZOLIN 2 GM in Sodium Chloride 0.9% 100 ML IVPB SCH (21:11)
[2024-05-18 23:41] VITALS: BMI 29.9
[2024-05-19] MEDS ORDERED: HumaLOG 300 UNITS/3 ML VIAL SC SCH (08:00)
[2024-05-19] MEDS: Pantoprazole DR 40 MG TAB PO SCH (08:38)
[2024-05-19] MEDS: metFORMIN 500 MG TAB PO SCH (08:38)
[2024-05-19] MEDS: Amlodipine 10 MG TAB PO SCH (08:38)
[2024-05-19] MEDS: Lisinopril 20 MG TAB PO SCH (08:38)
[2024-05-19] MEDS: Insulin Glargine 30 UNITS/0.3 ML VIAL SC SCH (08:42)
[2024-05-19] MEDS: Aspirin 81 mg Enteric Coated Tablet PO SCH (09:55)
[2024-05-19] MEDS: Acetaminophen/Codeine 30-300mg Tablet PO PRN (12:19)
[2024-05-19] MEDS ORDERED: Furosemide 20 MG TAB PO PRN (13:45)
[2024-05-19 15:47] VITALS: BP 111/57; TEMP 98.5
== END 2024-05-19 18:37 | disposition home or self-care (01) | DRG 502 ==
LOC: SDC 11:52 → SJJU 19:12
PROVIDERS: ADMIT Orthopaedic Surgery Hand Surgery; ATTEND Orthopaedic Surgery Hand Surgery
PROC: 0LB60ZZ Excision of Left Lower Arm and Wrist Tendon, Open Approach (ICD-10-PCS; principal; 2024-05-18)
PROC: 0PB Upper Bones, Excision (ICD-10-PCS; 2024-05-18)
PROC: 0PHL04Z Insertion of Internal Fixation Device into Left Ulna, Open Approach (ICD-10-PCS; 2024-05-18)
PROC: 0LB80ZZ Excision of Left Hand Tendon, Open Approach (ICD-10-PCS; 2024-05-18)
PROC: 0RBX0ZZ Excision of Left Finger Phalangeal Joint, Open Approach (ICD-10-PCS; 2024-05-18)
DX: M65.842 Other synovitis and tenosynovitis, left hand (principal); S63.592A Other specified sprain of left wrist, initial encounter; M65.322 Trigger finger, left index finger; S63.502A Unspecified sprain of left wrist, initial encounter; I10 Essential (primary) hypertension; E11.9 Type 2 diabetes mellitus without complications; E78.00 Pure hypercholesterolemia, unspecified; Z79.4 Long term (current) use of insulin; Z90.49 Acquired absence of other specified parts of digestive tract; G56.12 Other lesions of median nerve, left upper limb; Z88.8 Allergy status to other drugs, medicaments and biological substances; X58.XXXA Exposure to other specified factors, initial encounter
CPT/HCPCS: 36416; 88305; A6223; C1713; J0171; J0665; J0702; J1100; J1170; J1815; J1885; J2250; J2405; J2704; J2795; J3490